=== PATIENT | male | born 2000 | race Caucasian/White ===

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

== ENCOUNTER → 2018-08-27 | Outpatient (CLI) | payer BC ==
[~2018-08-27] MED LIST: ACTIGALL 300MG300 MG PO; PRILOTC; PROBIOTIC FORMU1 CAP PO; REMICADE V100 MG/VIA IV; VITAMIN D 50,1.25 MG PO; VTAMINC250TA; ZYRTEC 10MG10 MG PO
== END ==
LOC: COL.RAD 08:57
DX: R30.0 Dysuria (principal); N50.3 Cyst of epididymis

== ENCOUNTER 2019-08-25 21:51 | Emergency (ER) | payer BC ==
[~2019-08-25] VITALS: Ht 177.8 cm; Wt 81.8 kg
[2019-08-25 21:57] VITALS: TEMP 97.9
[2019-08-25 22:40] VITALS: BP 168/80; PULSE 74
== END 2019-08-25 22:40 | disposition home or self-care (01) ==
LOC: COL.ER 21:51
DX: B08.4 Enteroviral vesicular stomatitis with exanthem (principal); L50.1 Idiopathic urticaria